=== PATIENT | female | born 1935 | race Caucasian/White ===

== ENCOUNTER 2017-04-30 21:01 | Emergency (ER) | payer MEDICARE, BC ==
[2017-04-30 21:15] VITALS: BP 132/68
--- NOTE | 2017-04-30 21:36 | RAD ---
INDICATION: Intracranial injury COMPARISON: None TECHNIQUE: Noncontrast axial source images were acquired from the skull base to the vertex. FINDINGS: Ventricles/sulci: The ventricles and cisterns are normal in size and configuration for age. Brain parenchyma: There is no focal parenchymal finding, evidence of intracranial mass, or intracranial mass effect. Intracranial hemorrhage:None. Extra-axial spaces: There are no abnormal extra axial fluid collections or evidence of extra-axial mass. Calvarium: There is no calvarial fracture or other calvarial abnormality. Scalp: There is no evidence of scalp or extracalvarial soft tissue abnormality. Paranasal sinuses/mastoid: The paranasal sinuses and mastoid air cells are clear. Other: None. IMPRESSION: No acute intracranial findings
--- NOTE | 2017-05-01 02:28 | ED ---
Head Injury - HPI Summary HPI Summary: 82 patient presents via EMS, after sustaining a laceration to her right eyebrow after falling and hitting her face on gravel. She states she was walking with sandals on and slipped and fell forward. Wss wearing her sunglasses which she thinks caused the laceration. No LOC. EMS applied steri-strip, bleeding is controlled. Pt denies headache, alert and oriented. Denies any other injuries. Denies nausea, vomiting, neck pain, visual changes and back pain. - History Of Current Complaint Chief Complaint: EDFacialInjury Stated Complaint: FELL, DIZZY, HEAD LAC Time Seen by Provider: 04/30/17 21:51 Hx Obtained From: Patient, Family/Furniture Painter - friend Mechanism Of Injury: Fall From A Standing Position Onset/Duration: Started Minutes Ago, Traumatic Onset of Pain: Immediate Severity Currently: Mild Severity Initially: Mild Pain Intensity: 2 Pain Scale Used: 0-10 Numeric Location of Head Injury: Frontal - right lac above eyebrow Location: Discrete At: - right eyebrow, no headache Associated Signs And Symptoms: Negative - Allergies/Home Medications Allergies/Adverse Reactions: Allergies Allergy/AdvReac Type Severity Reaction Status Date / Time Penicillins [PCN] Allergy Eyes Verified 04/30/17 21:24 Itchy/Swollen/Red/Watery PMH/Surg Hx/FS Hx/Imm Hx Endocrine/Hematology History: Denies: Hx Anticoagulant Therapy, Hx Diabetes Cardiovascular History: Reports: Hx Hypertension Respiratory History: Denies: Hx Asthma - Surgical History Surgery Procedure, Year, and Place: n/a - Immunization History Immunizations Up to Date: Yes Infectious Disease History: No Infectious Disease History: Denies: Traveled Outside the [place] in Last 30 Days - Social History Alcohol Use: None Substance Use Type: Reports: None Smoking Status (MU): Never Smoked Tobacco Review of Systems Constitutional: Negative Eyes: Negative ENT: Negative Cardiovascular: Negative Respiratory: Negative Positive: Other - laceration Neurological: Negative All Other Systems Reviewed And Are Negative: Yes Physical Exam Triage Information Reviewed: Yes Vital Signs On Initial Exam: Initial Vitals Temp Pulse Resp BP Pulse Ox 98.1 F 62 16 132/68 100 04/30/17 21:08 04/30/17 21:08 04/30/17 21:08 04/30/17 21:08 04/30/17 21:08 Vital Signs Reviewed: Yes Appearance: Positive: Well-Appearing, No Pain Distress, Well-Nourished Skin: Positive: Warm, Skin Color Reflects Adequate Perfusion, Dry, Erythema @ - 1.5cm lac to above right eyebrow. minmal to no bleeding after removal of steri strip. Negative: Cold, Numb, Cyanosis @ Head/Face: Positive: Normal Head/Face Inspection, Scalp - normal without hematoma besides laceration to above right eyebrow, 1.5cm Eyes: Positive: Normal, EOMI, JASIEL, Conjunctiva Clear ENT: Positive: Hearing grossly normal, Pharynx normal, TMs normal Neck: Positive: Supple, Nontender Respiratory/Lung Sounds: Positive: Clear to Auscultation, Breath Sounds Present. Negative: Decreased Breath Sounds, Rales, Rhonchi, Wheezes Cardiovascular: Positive: Normal, RRR, Pulses are Symmetrical in both Upper and Lower Extremities. Negative: Murmur, Rub Abdomen Description: Positive: Nontender, Soft Bowel Sounds: Positive: Present Musculoskeletal: Positive: Normal, Strength/ROM Intact. Negative: Pain @ Neurological: Positive: Normal, Sensory/Motor Intact, Alert, Oriented to Person Place, Time, CN Intact II-III, Reflexes Intact, Normal Gait Psychiatric: Positive: Affect/Mood Appropriate - [place] Coma Scale Best Eye Response: 4 - Spontaneous Best Motor Response: 6 - Obeys Commands Best Verbal Response: 5 - Oriented Procedures - Laceration/Wound Repair 1 Location: face - above right eyebrow Description: Linear Length, Depth and Shape: 1.5 cm long, epidermal layer Betadine Prep?: Yes Irrigated w/ Saline (ccs): 100 Laceration/Wound Explored: clean, no foreign body removed Closure: Skin Adhesive, SteriStrips Sterile Dressing Applied?: Yes Diagnostics - Vital Signs Vital Signs Temp Pulse Resp BP Pulse Ox 04/30/17 21:12 98.1 F 62 16 132/68 100 04/30/17 21:08 98.1 F 62 16 132/68 100 - Laboratory Lab Statement: Any lab studies that have been ordered have been reviewed, and results considered in the medical decision making process. - CT brain CT Interpretation: No Acute Changes - no acute intracranial findings CT Interpretation Completed By: Radiologist Head Injury Course/Dx Course Of Treatment: patients laceration was glued, steri stripped and dressed without complication. CT obtained and negative. no pain management as patient denied any pain. do not get wet laceration for 48 hours. no concern for hemorrhage or other brain injuries.Does not appear to have sustained concussion at this time however was educated on symptoms as it can be delyaed symptoms. Rest of physical exam normal. Aware of worsening signs and symptoms to watch out for. Keep laceration clean and dry. Follow up with PCP in 7 days. Return sooner if worsening signs and symtpoms. - Diagnoses Differential Diagnosis/HQI/PQRI: Concussion Without LOC, Intracranial Bleed, Laceration, Skull Fracture, Other Provider Diagnoses: Laceration of face Discharge - Discharge Plan Condition: Stable Disposition: HOME Patient Education Materials: Laceration (ED), Skin Adhesive Care (ED) Referrals: Non Staff,Doctor [Primary Care Provider] - Additional Instructions: Keep glue in laceration dry for the next 24-48 hours. If you develop any new symptoms please seek medical attention. Follow up with PCP. NSAIDs for pain or headache.
== END 2017-04-30 22:10 | disposition home or self-care (01) ==
LOC: ED 21:01
DX: S01.111A Laceration without foreign body of right eyelid and periocular area, initial encounter (principal); W19.XXXA Unspecified fall, initial encounter; Y93.9 Activity, unspecified; Y92.9 Unspecified place or not applicable
CPT/HCPCS: 12011; 70450; 99282